=== PATIENT | female | born 1975 | race Caucasian/White ===

== ENCOUNTER 2017-06-11 11:17 | Emergency (ER) | payer SELFPAY ==
[2017-06-11 11:53] VITALS: BP 134/71
--- NOTE | 2017-06-11 13:04 | XRay Report ---
ROUTINE CHEST, TWO VIEWS: HISTORY: Pain after fall, pneumothorax. The trachea, heart, mediastinal contour, lung franklin and bony thorax are unremarkable. IMPRESSION: Unremarkable chest x-ray.
== END 2017-06-11 18:00 | disposition left against medical advice (07) ==
LOC: ED 11:17
DX: R07.9 Chest pain, unspecified (principal); Z53.21 Procedure and treatment not carried out due to patient leaving prior to being seen by health care provider
CPT/HCPCS: 71020